=== PATIENT | male | born 1940 | race Caucasian/White ===

== ENCOUNTER → 2024-11-28 | Outpatient (RCR) | payer MEDICARE | LOC: PT 11-17 08:38 | PROVIDERS: ATTEND Podiatrist | DX: M72.2 Plantar fascial fibromatosis (principal) ==

== ENCOUNTER → 2024-12-26 | Outpatient (RCR) | payer MEDICARE | LOC: PT 12-02 06:40 | PROVIDERS: ATTEND Podiatrist | DX: M72.2 Plantar fascial fibromatosis (principal) ==

== ENCOUNTER 2025-01-02 08:00 | Outpatient (RCR) | payer MEDICARE | END 2025-01-26 | LOC: PT 08:00 | PROVIDERS: ATTEND Podiatrist | DX: M72.2 Plantar fascial fibromatosis (principal) ==